=== PATIENT | female | born 1985 | race Caucasian/White ===

== ENCOUNTER 2016-07-29 03:33 | Emergency (ER) | payer SELFPAY ==
[2016-07-29 03:45] VITALS: BP 117/73
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
[2016-07-29] MEDS ORDERED: PENICILLIN V POTASSIUM 250 MG TABLET PO ONE (04:14)
[2016-07-29] MEDS ORDERED: PENICILLIN V POTASSIUM 250 MG TABLET ONE (04:18)
== END 2016-07-29 04:20 | disposition home or self-care (01) ==
LOC: ER 03:33
DX: S01.511A Laceration without foreign body of lip, initial encounter (principal); S00.83XA Contusion of other part of head, initial encounter; Y04.2XXA Assault by strike against or bumped into by another person, initial encounter